=== PATIENT | male | born 1945 | race Two or more races ===

== ENCOUNTER 2023-07-05 00:08 | Emergency (ER) | payer BC ==
[~2023-07-05] VITALS: Ht 172.7 cm; Wt 113.6 kg
[2023-07-05 00:50] VITALS: TEMP 98.2
[2023-07-05 01:10] VITALS: PULSE 75; RESP 13; O2SAT 95
[2023-07-05 01:15] VITALS: BP 146/82; PULSE 73; RESP 20; O2SAT 97
[2023-07-05 01:28] LABS: Urine Bacteria NONE SEEN /hpf (None Seen); Urine Blood 3+ /uL (Negative); Urine Budding Yeast OCCASIONAL /hpf (None Seen); Urine Clarity HAZY (Clear); Urine Color Yellow (Yellow); Urine Mucus FEW (None Seen); Urine Protein, UAD 2+ (Negative); Urine Specific Gravity 1.014 (1.001-1.035); Urine Urobilinogen Normal (Negative); Urine WBC 94 /hpf (0 - 3); Urine WBC Clumps PRESENT /hpf (None Seen); Urine pH 6.5 (5.0-8.0)
== END 2023-07-05 01:28 | disposition home or self-care (01) ==
LOC: ER 00:08 → EEVIPCON 00:08 → ER 01:18
DX: T83.038A Leakage of other urinary catheter, initial encounter (principal); Z87.442 Personal history of urinary calculi; Z98.890 Other specified postprocedural states
CPT/HCPCS: 81001